=== PATIENT | female | born 1990 | race Caucasian/White ===

== ENCOUNTER 2016-11-26 15:12 | Inpatient (IN) | payer OTHER ==
[2016-11-26 18:25] VITALS: BMI 44.6
--- NOTE | 2016-11-26 20:04 | HP ---
Admission [facility] Chief Complaint: SEEKING REHAB SERVICES FOR ALCOHOL DEPENDENCE Allergies/Adverse Reactions: Allergies Allergy/AdvReac Type Severity Reaction Status Date / Time Fish Containing Products Allergy Intermediate Vomiting Verified 11/26/16 19:15 pork derived (porcine) Allergy Intermediate Vomiting Verified 11/26/16 19:15 History of Present Illness: 26 Y.O. WOMAN WITH AN EXTENSIVE HISTORY OF ALCOHOL DEPENDENCE IS SEEKING REHAB. SHE REPORTS SHE COMPLETED DETOX AT [facility] ON 08/2016 AND COMPLETED REHAB AT [facility] ON 09/2016. SHE WAS AT [facility] FROM 11/23-11/26 DUE TO ACUTE ALCOHOL INTOXICATION. SHE WAS REFERRED HERE FOR REHAB SERVICES. Exam Limitations: No Limitations - Ebola screening Have you traveled outside of the country in the last 21 days: No Have you had contact with anyone from an Ebola affected area: No Have you been sick,other than usual withdrawal symptoms: No - Review of Systems Constitutional: Chills, Night Sweats, Changes in sleep EENT: reports: No Symptoms Reported Respiratory: reports: No Symptoms reported, Wheezing Cardiac: reports: Palpitations GI: reports: Constipated, Nausea : reports: No Symptoms Reported Musculoskeletal: reports: Back Pain Integumentary: reports: Other (SCARTS ON B/L UE; PT. CUTS HERSHELF WHEN SHE IS ANXIOUS) Neuro: reports: Seizure (BENZO RELATED SEIZURE-LAST WAS IN 08/2016) Endocrine: reports: Excessive Sweating Hematology: reports: No Symptoms Reported Psychiatric: reports: Orientated x3, Anxious, Depressed, other (PTSD) Other Systems: Reviewed and Negative Patient History - Patient Medical History Hx Anemia: No Hx Asthma: Yes Hx Chronic Obstructive Pulmonary Disease (COPD): No Hx Cancer: No Hx Cardiac Disorders: No Hx Congestive Heart Failure: No Hx Hypertension: No Hx Hypercholesterolemia: No Hx Pacemaker: No HX Cerebrovascular Accident: No Hx Seizures: Yes (BENZO RELATED 08/2016) Hx Dementia: No Hx Diabetes: No Hx Gastrointestinal Disorders: Yes (DYSPEPSIA ) Hx Liver Disease: No Hx Genitourinary Disorders: No Hx Sexually Transmitted Disorders: No Hx Renal Disease (ESRD): No Hx Thyroid Disease: Yes (HYPOTHYROID ) Hx Human Immunodeficiency Virus (HIV): No Hx Hepatitis C: No Hx Depression: Yes Hx Suicide Attempt: Yes (2 YEARS AGO-CUT FEMORAL ARTERY ) Hx Bipolar Disorder: No Hx Schizophrenia: No - Patient Surgical History Past Surgical History: No - PPD History Previous Implant?: Yes Documented Results: Negative w/o proof PPD to be Administered?: Yes - Reproductive History Patient is a Female of Child Bearing Age (11 -55 yrs old): Yes Last Menstrual Period: 11/22/16 Patient : No - Smoking Cessation Smoking history: Current some day smoker Have you smoked in the past 12 months: Yes Aproximately how many cigarettes per day: 1 Initiated information on smoking cessation: Yes 'Breaking Loose' booklet given: 11/26/16 - Substance & Tx. History Hx Alcohol Use: Yes Hx Substance Use: No Substance Use Type: Alcohol Hx Substance Use Treatment: Yes (DETOX AND REHAB ) - Substances Abused Alcohol Route: Oral Frequency: 3-6 times per week Amount used: 1/2 LITER OF VODKA Age of first use: 19 Date of Last Use: 11/23/16 Family Disease History - Family Disease History Family Disease History: CA: Grandparent, Other: Sister (ETOH DEPENDENT ) Admission Physical Exam [facility] - Vital Signs Vital Signs: Vital Signs - 24 hr 11/26/16 18:21 Temperature 95.7 F L Pulse Rate 76 Respiratory 20 Rate Blood Pressure 116/80 - Physical General Appearance: Yes: Obese, Anxious HEENTM: Yes: Hearing grossly Normal, Normocephalic, Normal Voice Respiratory: Yes: Chest Non-Tender, Lungs Clear, Normal Breath Sounds, No Respiratory Distress, No Accessory Muscle Use Neck: Yes: No masses,lesions,Nodules, Trachea in good position Breast: Yes: Breast Exam Deferred Cardiology: Yes: Regular Rhythm, Regular Rate, S1, S2 Abdominal: Yes: Soft Genitourinary: Yes: Other (NO COMPLAINTS REPORTED) Back: Yes: Normal Inspection Musculoskeletal: Yes: full range of Motion, Gait Steady Extremities: Yes: Normal Inspection, Normal Range of Motion, Non-Tender Neurological: Yes: 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 HAS SCARS FROM CUTTING HERSELF ON B/L UE) Lymphatic: Yes: Within Normal Limits - Diagnostic (1) Alcohol dependence with uncomplicated withdrawal Current Visit: Yes Status: Chronic (2) Asthma Current Visit: Yes Status: Chronic (3) Hypothyroid Current Visit: Yes Status: Chronic (4) Nicotine dependence Current Visit: Yes Status: Chronic (5) Self mutilating behavior Current Visit: Yes Status: Chronic Cleared for Admission [facility] - Detox or Rehab [facility] Level of Care: Observation Bed Claeared for Rehab Admission: Yes [facility] Breath Alcohol Content Breath Alcohol Content: 0 Urine Pregancy Test - Result Urine Test Results: Negative- NO Line Present Urine Drug Screen - Results Drug Screen Negative: No Urine Drug Screen Results: BZO-Benzodiazepines
[2016-11-26] MEDS ORDERED: diphenhydrAMINE HCL 50 MG CAPSULE PO PRN (20:14)
[2016-11-26] MEDS ORDERED: MAG HYDROX/AL HYDROX/SIMETH 30 ML UNIT-DOSE CUP PO PRN (20:14)
[2016-11-26] MEDS ORDERED: NICOTINE POLACRILEX 2 MG GUM BC PRN (20:14)
[2016-11-26] MEDS ORDERED: LOPERAMIDE HCL 2 MG CAPSULE PO PRN (20:14)
[2016-11-26] MEDS ORDERED: MAGNESIUM HYDROX 2400MG/30ML ORAL SUSPENSION 30 ML CUP PO PRN (20:14)
[2016-11-26] MEDS ORDERED: ACETAMINOPHEN 325 MG TABLET (FP) PO PRN (20:14)
[2016-11-26] MEDS ORDERED: MAGNESIUM CITRATE 300 ML BOTTLE PO PRN (20:14)
[2016-11-26] MEDS ORDERED: guaiFENesin/D-METHORPHAN HB 10 ML UNIT-DOSE CUPS PO PRN (20:14)
[2016-11-26] MEDS ORDERED: P-EPHED 60MG/TRIPROLIDI 2.5MG TABLET PO PRN (20:14)
[2016-11-26] MEDS ORDERED: MENTHOL/PHENOL 1 EACH UD MM PRN (20:14)
[2016-11-26] MEDS ORDERED: ALBUTEROL SO4 6.7 GM HFA INHALER IH PRN (20:20)
[2016-11-26 23:04] LABS: URINE APPEARANCE CLEAR; URINE BILIRUBIN NEGATIVE (NEGATIVE); URINE BLOOD NEGATIVE (NEGATIVE); URINE COLOR STRAW; URINE GLUCOSE (UA) NEGATIVE (NEGATIVE); URINE KETONE NEGATIVE (NEGATIVE); URINE NITRITE NEGATIVE (NEGATIVE); URINE PROTEIN NEGATIVE (NEGATIVE); URINE UROBILINOGEN NEGATIVE E.U./dl (0.2-1.0)
[2016-11-26 23:10] LABS: URINE LEUK ESTERASE TRACE (NEGATIVE)
[2016-11-26 23:13] LABS: URINE BACTERIA RARE /hpf (NONE SEEN); URINE RBC <1 /hpf (0-3); URINE WBC 2 /hpf (3-5)
[2016-11-26] MEDS: traZODone HCL 100 MG TABLET (FP) PO SCH (23:38)
[2016-11-26] MEDS: THIAMINE HCL 100 MG TABLET (FP) PO SCH (23:38)
[2016-11-26] MEDS: TOPIRAMATE 100 MG TABLET PO SCH (23:38)
[2016-11-26] MEDS: RANITIDINE HCL 150 MG TABLET (FP) PO SCH (23:39)
[2016-11-26] MEDS: LITHIUM CARBONATE 300 MG CAPSULE (FP) PO SCH (23:39)
[2016-11-27] MEDS ORDERED: TUBERCULIN PPD 5 TU/0.1ML VIAL ID ONE (05:47)
[2016-11-27] MEDS: LEVOTHYROXINE NA 100 MCG TABLET (FP) PO SCH (06:58)
[2016-11-27 10:09] LABS: MCH 30.9 pg (25.7-33.7); MCHC 32.8 g/dl (32.0-36.0); MEAN CELL VOLUME 94.3 fl (80-96); MEAN PLT VOLUME 10.1 fl (7.5-11.1); PLATELET COUNT 263 K/MM3 (134-434); RDW 16.2 % (11.6-15.6); WHITE BLOOD COUNT 6.9 K/mm3 (4.0-10.0)
[2016-11-27] MEDS: PRENATAL VITAMINS W/ FOLIC ACID TABLET (FP) PO SCH (10:26)
[2016-11-27] MEDS: TOPIRAMATE 100 MG TABLET PO SCH ×2 (10:26→21:19)
[2016-11-27] MEDS: FLUoxetine HCL 20 MG CAPSULE (FP) PO SCH (10:26)
[2016-11-27] MEDS: PANTOPRAZOLE 40 MG TABLET (FP) PO SCH (10:26)
[2016-11-27] MEDS: RANITIDINE HCL 150 MG TABLET (FP) PO SCH ×2 (10:27→21:19)
[2016-11-27 10:36] LABS: ALBUMIN 3.9 g/dl (3.4-5.0); ANION GAP 9 (8-16); CALCIUM 9.7 mg/dL (8.5-10.1); CO2 25 mmol/L (21-32); GLUCOSE,RANDOM 76 mg/dL (74-106)
[2016-11-27 11:00] LABS: ALK PHOS 61 U/L (45-117); BILIRUBIN,TOTAL 0.4 mg/dL (0.2-1.0); CREATININE 0.7 mg/dL (0.55-1.02); SGOT/AST 17 U/L (15-37); SGPT/ALT 17 U/L (12-78); TOT PROT 7.3 g/dl (6.4-8.2)
--- NOTE | 2016-11-27 11:44 | EKG ---
Test Reason : Blood Pressure : / mmHG Vent. Rate : 060 BPM Atrial Rate : 060 BPM P-R Int : 180 ms QRS Dur : 086 ms QT Int : 424 ms P-R-T Axes : 020 013 034 degrees QTc Int : 424 ms NORMAL SINUS RHYTHM NORMAL ECG NO PREVIOUS ECGS AVAILABLE Confirmed by RAFA BEAR MD ([id number]) on 11/27/2016 11:44:08 AM Referred By: Josy Gillespie Confirmed By:RAFA BEAR MD
[2016-11-27] MEDS: LITHIUM CARBONATE 300 MG CAPSULE (FP) PO SCH (21:19)
[2016-11-27] MEDS: THIAMINE HCL 100 MG TABLET (FP) PO SCH (21:19)
[2016-11-27] MEDS: traZODone HCL 100 MG TABLET (FP) PO SCH (21:19)
[2016-11-27] MEDS ORDERED: traZODone HCL 100 MG TABLET (FP) PO SCH (22:00)
[2016-11-28] MEDS: LEVOTHYROXINE NA 100 MCG TABLET (FP) PO SCH (06:21)
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
[2016-11-28] MEDS: RANITIDINE HCL 150 MG TABLET (FP) PO SCH ×2 (10:49→21:39)
[2016-11-28] MEDS: PRENATAL VITAMINS W/ FOLIC ACID TABLET (FP) PO SCH (10:49)
[2016-11-28] MEDS: FLUoxetine HCL 20 MG CAPSULE (FP) PO SCH (10:49)
[2016-11-28] MEDS: TOPIRAMATE 100 MG TABLET PO SCH ×2 (10:49→21:42)
[2016-11-28] MEDS: PANTOPRAZOLE 40 MG TABLET (FP) PO SCH (10:49)
[2016-11-28] MEDS: LITHIUM CARBONATE 300 MG CAPSULE (FP) PO SCH ×2 (11:10→21:39)
[2016-11-28] MEDS: AMITRIPTYLINE HCL 25 MG TABLET (FP) PO SCH ×2 (13:02→21:39)
[2016-11-28] MEDS: THIAMINE HCL 100 MG TABLET (FP) PO SCH (21:39)
[2016-11-28] MEDS: traZODone HCL 100 MG TABLET (FP) PO SCH (21:39)
[2016-11-28] MEDS: SUVOREXANT 10 MG TABLET PO PRN (21:42)
[2016-11-29] MEDS: AMITRIPTYLINE HCL 25 MG TABLET (FP) PO SCH ×3 (06:26→21:43)
[2016-11-29] MEDS: LEVOTHYROXINE NA 100 MCG TABLET (FP) PO SCH (06:26)
[2016-11-29] MEDS: LITHIUM CARBONATE 300 MG CAPSULE (FP) PO SCH ×2 (10:49→21:43)
[2016-11-29] MEDS: RANITIDINE HCL 150 MG TABLET (FP) PO SCH ×2 (10:49→22:40)
[2016-11-29] MEDS: TOPIRAMATE 100 MG TABLET PO SCH ×2 (10:49→21:42)
[2016-11-29] MEDS: PANTOPRAZOLE 40 MG TABLET (FP) PO SCH (10:49)
[2016-11-29] MEDS: FLUoxetine HCL 20 MG CAPSULE (FP) PO SCH (10:49)
[2016-11-29] MEDS: PRENATAL VITAMINS W/ FOLIC ACID TABLET (FP) PO SCH (10:49)
[2016-11-29] MEDS: SENNOSIDES 8.6MG TABLET (FP) PO SCH (15:56)
[2016-11-29] MEDS: traZODone HCL 100 MG TABLET (FP) PO SCH (21:42)
[2016-11-29] MEDS: THIAMINE HCL 100 MG TABLET (FP) PO SCH (21:43)
[2016-11-29] MEDS: SUVOREXANT 10 MG TABLET PO PRN (21:44)
[2016-11-30] MEDS: LEVOTHYROXINE NA 100 MCG TABLET (FP) PO SCH (06:24)
[2016-11-30] MEDS: AMITRIPTYLINE HCL 25 MG TABLET (FP) PO SCH ×3 (06:24→21:56)
[2016-11-30] MEDS: PANTOPRAZOLE 40 MG TABLET (FP) PO SCH (10:45)
[2016-11-30] MEDS: LITHIUM CARBONATE 300 MG CAPSULE (FP) PO SCH ×2 (10:45→21:56)
[2016-11-30] MEDS: SENNOSIDES 8.6MG TABLET (FP) PO SCH (10:45)
[2016-11-30] MEDS: TOPIRAMATE 100 MG TABLET PO SCH ×2 (10:45→21:56)
[2016-11-30] MEDS: FLUoxetine HCL 20 MG CAPSULE (FP) PO SCH (10:45)
[2016-11-30] MEDS: RANITIDINE HCL 150 MG TABLET (FP) PO SCH ×2 (10:46→21:56)
[2016-11-30] MEDS: PRENATAL VITAMINS W/ FOLIC ACID TABLET (FP) PO SCH (10:46)
--- NOTE | 2016-11-30 16:40 | PN ---
Psychiatric Progress Note Vital Signs: Vital Signs Period Temp Pulse Resp BP Sys/Veras Pulse Ox Last 24 Hr 97.7 F 93 16-18 93/58 Date of Session: 11/30/16 Chief Complaint:: progress update HPI: Patient addressed Alcohol dependence comorbid with Bordeline Personality disorder,Major depressive disorder. ROS: Significant for BA,Hypothyroid. Current Medications: Active Medications Generic Name Dose Route Start Last Admin Trade Name Freq PRN Reason Stop Dose Admin Acetaminophen 650 mg 11/26/16 20:14 Tylenol - PO Q4H PRN PAIN Al Hydroxide/Mg Hydroxide 30 ml 11/26/16 20:14 Mylanta Oral Suspension - PO Q6H PRN DYSPEPSIA Albuterol Sulfate 2 puff 11/26/16 20:20 Ventolin Hfa Inhaler - IH Q4H PRN SHORT OF BREATH/WHEEZING Amitriptyline HCl 25 mg 11/28/16 14:00 11/30/16 13:07 Elavil - PO 25 mg TID JAZZMINE Administration Diphenhydramine HCl 50 mg 11/26/16 20:14 Benadryl - PO HSMR1 PRN INSOMNIA Eucalyptus/Menthol/Phenol/Sorbitol 1 each 11/26/16 20:14 Cepastat Lozenge - MM Q4H PRN SORE THROAT Fluoxetine HCl 40 mg 11/27/16 10:00 11/30/16 10:45 Prozac - PO 40 mg DAILY JAZZMINE Administration Guaifenesin 10 ml 11/26/16 20:14 Robitussin Dm - PO Q6H PRN COUGH Hydroxyzine Pamoate 50 mg 11/26/16 20:14 Vistaril - PO Q4H PRN AGITATION Ibuprofen 400 mg 11/26/16 20:14 Motrin - PO Q6H PRN SEVERE PAIN Levothyroxine Sodium 100 mcg 11/27/16 07:00 11/30/16 06:24 Synthroid - PO 100 mcg DAILY@0700 JAZZMINE Administration [place] Carbonate 600 mg 11/26/16 22:00 11/29/16 21:43 Eskalith - PO 600 mg HS JAZZMINE Administration [place] Carbonate 300 mg 11/28/16 10:30 11/30/16 10:45 Eskalith - PO 300 mg DAILY JAZZMINE Administration Loperamide HCl 4 mg 11/26/16 20:14 Imodium - PO Q6H PRN DIARRHEA Magnesium Citrate 300 ml 11/26/16 20:14 Citroma - PO Q48H PRN CONSTIPATION Magnesium Hydroxide 30 ml 11/26/16 20:14 Milk Of Magnesia - PO DAILY PRN CONSTIPATION Nicotine Polacrilex 2 mg 11/26/16 20:14 Nicorette Gum - BC Q2H PRN NICOTINE REPLACEMENT RX Pantoprazole Sodium 40 mg 11/27/16 10:00 11/30/16 10:45 Protonix - PO 40 mg DAILY JAZZMINE Administration Multivit/Folic Acid/Iron 1 tab 11/27/16 10:00 11/30/16 10:46 Vitamins (Sjr) - PO 1 tab DAILY JAZZMINE Administration Pseudoephedrine/Triprolidine 1 combo 11/26/16 20:14 Actifed - PO TID PRN NASAL CONGESTION Ranitidine HCl 150 mg 11/26/16 22:00 11/30/16 10:46 Zantac - PO 150 mg BID JAZZMINE Administration Senna 1 tab 11/29/16 15:30 11/30/16 10:45 Senna - PO 1 tab DAILY JAZZMINE Administration Thiamine HCl 100 mg 11/26/16 22:00 11/29/16 21:43 Vitamin B1 - PO 100 mg HS JAZZMINE Administration Topiramate 100 mg 11/26/16 23:00 11/30/16 10:45 Topamax - PO 100 mg BID JAZZMINE Administration Trazodone HCl 100 mg 11/26/16 22:00 11/29/16 21:42 Desyrel - PO 100 mg HS JAZZMINE Administration Current Side Effect: No Lab tests ordered: No Lab tests reviewed: Yes Provider note:: chart was revuewed,patient was seen today.Treatment plan including medication management and psychotherapy has been discussed with patient .she has made some progress during her staying in the hospital.patient reports that she is able to utilze her coping skills during unpredicictable or stressful situations.psychoeducations has been provided as weel as supportive therapy. patient will continue current medications as per plan. Total face to face time:: 30 Mental Status Exam - Mental Status Exam Alert and Oriented to: Time, Place, Person Cognitive Function: Grossly Intact Patient Appearance: Unkempt Mood: Sad, Expansive Affect: Mood Congruent, Labile Patient Behavior: Cooperative Speech Pattern: Clear Voice Loudness: Normal Thought Process: Goal Oriented Thought Disorder: Not Present Hallucinations: Denies Suicidal Ideation: Denies Homicidal Ideation: Denies Insight/Judgement: Fair Sleep: Fair Appetite: Fair Muscle strength/Tone: Normal Gait/Station: Normal Psychiatric Treatment Plan - Problem List (1) Alcohol dependence with uncomplicated withdrawal Current Visit: Yes (2) Asthma Current Visit: Yes (3) Hypothyroid Current Visit: Yes (4) Nicotine dependence Current Visit: Yes (5) Borderline personality disorder Current Visit: Yes (6) MDD (major depressive disorder) Current Visit: Yes
[2016-11-30] MEDS: SUVOREXANT 10 MG TABLET PO PRN (21:55)
[2016-11-30] MEDS: THIAMINE HCL 100 MG TABLET (FP) PO SCH (21:56)
[2016-11-30] MEDS: traZODone HCL 100 MG TABLET (FP) PO SCH (21:56)
[2016-12-01] MEDS ORDERED: PT OWN MED DRAWER 7, Y5N ONE (05:45)
[2016-12-01] MEDS: LEVOTHYROXINE NA 100 MCG TABLET (FP) PO SCH (07:04)
[2016-12-01] MEDS: AMITRIPTYLINE HCL 25 MG TABLET (FP) PO SCH ×3 (07:04→21:32)
[2016-12-01] MEDS: LITHIUM CARBONATE 300 MG CAPSULE (FP) PO SCH ×2 (10:11→21:32)
[2016-12-01] MEDS: PANTOPRAZOLE 40 MG TABLET (FP) PO SCH (10:11)
[2016-12-01] MEDS: SENNOSIDES 8.6MG TABLET (FP) PO SCH (10:11)
[2016-12-01] MEDS: TOPIRAMATE 100 MG TABLET PO SCH ×2 (10:11→21:34)
[2016-12-01] MEDS: PRENATAL VITAMINS W/ FOLIC ACID TABLET (FP) PO SCH (10:11)
[2016-12-01] MEDS: RANITIDINE HCL 150 MG TABLET (FP) PO SCH ×2 (10:11→21:32)
[2016-12-01] MEDS: FLUoxetine HCL 20 MG CAPSULE (FP) PO SCH (10:11)
[2016-12-01] MEDS: THIAMINE HCL 100 MG TABLET (FP) PO SCH (21:32)
[2016-12-01] MEDS: traZODone HCL 100 MG TABLET (FP) PO SCH (21:32)
[2016-12-01] MEDS: SUVOREXANT 10 MG TABLET PO PRN (21:35)
[2016-12-02] MEDS: AMITRIPTYLINE HCL 25 MG TABLET (FP) PO SCH ×3 (06:32→21:43)
[2016-12-02] MEDS: LEVOTHYROXINE NA 100 MCG TABLET (FP) PO SCH (06:32)
[2016-12-02] MEDS: RANITIDINE HCL 150 MG TABLET (FP) PO SCH ×2 (10:15→21:43)
[2016-12-02] MEDS: LITHIUM CARBONATE 300 MG CAPSULE (FP) PO SCH ×2 (10:15→21:45)
[2016-12-02] MEDS: PRENATAL VITAMINS W/ FOLIC ACID TABLET (FP) PO SCH (10:15)
[2016-12-02] MEDS: SENNOSIDES 8.6MG TABLET (FP) PO SCH (10:16)
[2016-12-02] MEDS: FLUoxetine HCL 20 MG CAPSULE (FP) PO SCH (10:16)
[2016-12-02] MEDS: TOPIRAMATE 100 MG TABLET PO SCH ×2 (10:16→21:43)
[2016-12-02] MEDS: PANTOPRAZOLE 40 MG TABLET (FP) PO SCH (10:17)
[2016-12-02] MEDS: THIAMINE HCL 100 MG TABLET (FP) PO SCH (21:43)
[2016-12-02] MEDS: traZODone HCL 100 MG TABLET (FP) PO SCH (21:43)
[2016-12-02] MEDS: SUVOREXANT 10 MG TABLET PO PRN (21:45)
[2016-12-03] MEDS: LEVOTHYROXINE NA 100 MCG TABLET (FP) PO SCH (06:28)
[2016-12-03] MEDS: AMITRIPTYLINE HCL 25 MG TABLET (FP) PO SCH ×3 (06:28→21:43)
[2016-12-03] MEDS: IBUPROFEN 400 MG TABLET (FP) PO PRN (06:28)
[2016-12-03] MEDS: PANTOPRAZOLE 40 MG TABLET (FP) PO SCH (10:51)
[2016-12-03] MEDS: PRENATAL VITAMINS W/ FOLIC ACID TABLET (FP) PO SCH (10:52)
[2016-12-03] MEDS: TOPIRAMATE 100 MG TABLET PO SCH ×2 (10:52→21:43)
[2016-12-03] MEDS: SENNOSIDES 8.6MG TABLET (FP) PO SCH (10:52)
[2016-12-03] MEDS: RANITIDINE HCL 150 MG TABLET (FP) PO SCH ×2 (10:52→21:43)
[2016-12-03] MEDS: LITHIUM CARBONATE 300 MG CAPSULE (FP) PO SCH ×2 (10:52→21:43)
[2016-12-03] MEDS: FLUoxetine HCL 20 MG CAPSULE (FP) PO SCH (10:52)
[2016-12-03] MEDS: traZODone HCL 100 MG TABLET (FP) PO SCH (21:43)
[2016-12-03] MEDS: THIAMINE HCL 100 MG TABLET (FP) PO SCH (21:43)
[2016-12-03] MEDS: SUVOREXANT 10 MG TABLET PO PRN (21:44)
[2016-12-04] MEDS: LEVOTHYROXINE NA 100 MCG TABLET (FP) PO SCH (06:24)
[2016-12-04] MEDS: AMITRIPTYLINE HCL 25 MG TABLET (FP) PO SCH ×3 (06:24→21:40)
[2016-12-04] MEDS: PRENATAL VITAMINS W/ FOLIC ACID TABLET (FP) PO SCH (10:45)
[2016-12-04] MEDS: FLUoxetine HCL 20 MG CAPSULE (FP) PO SCH (10:46)
[2016-12-04] MEDS: RANITIDINE HCL 150 MG TABLET (FP) PO SCH ×2 (10:47→21:40)
[2016-12-04] MEDS: TOPIRAMATE 100 MG TABLET PO SCH ×2 (10:47→21:40)
[2016-12-04] MEDS: LITHIUM CARBONATE 300 MG CAPSULE (FP) PO SCH ×2 (10:47→21:39)
[2016-12-04] MEDS: PANTOPRAZOLE 40 MG TABLET (FP) PO SCH (10:47)
[2016-12-04] MEDS: SENNOSIDES 8.6MG TABLET (FP) PO SCH (10:47)
[2016-12-04] MEDS: THIAMINE HCL 100 MG TABLET (FP) PO SCH (21:39)
[2016-12-04] MEDS: traZODone HCL 100 MG TABLET (FP) PO SCH (21:40)
[2016-12-04] MEDS: IBUPROFEN 400 MG TABLET (FP) PO PRN (21:40)
[2016-12-05] MEDS: LEVOTHYROXINE NA 100 MCG TABLET (FP) PO SCH (06:14)
[2016-12-05] MEDS: AMITRIPTYLINE HCL 25 MG TABLET (FP) PO SCH ×3 (06:14→21:37)
[2016-12-05] MEDS: PRENATAL VITAMINS W/ FOLIC ACID TABLET (FP) PO SCH (10:28)
[2016-12-05] MEDS: FLUoxetine HCL 20 MG CAPSULE (FP) PO SCH (10:28)
[2016-12-05] MEDS: LITHIUM CARBONATE 300 MG CAPSULE (FP) PO SCH ×2 (10:28→21:37)
[2016-12-05] MEDS: SENNOSIDES 8.6MG TABLET (FP) PO SCH (10:28)
[2016-12-05] MEDS: RANITIDINE HCL 150 MG TABLET (FP) PO SCH ×2 (10:29→21:38)
[2016-12-05] MEDS: PANTOPRAZOLE 40 MG TABLET (FP) PO SCH (10:29)
[2016-12-05] MEDS: TOPIRAMATE 100 MG TABLET PO SCH ×2 (10:29→21:38)
--- NOTE | 2016-12-05 13:55 | PN ---
Psychiatric Progress Note Vital Signs: Vital Signs Period Temp Pulse Resp BP Sys/Veras Pulse Ox Last 24 Hr 97.7 F 79 18-18 111/79 Date of Session: 12/05/16 Chief Complaint:: Leon having nightmares,Iused to take Prazosin in the past for my PTSD. HPI: Patient addressed Alcohol dependence comorbid with MDD,Bordeline personality disorder. ROS: Significant for Hypothyroid. Current Medications: Active Medications Generic Name Dose Route Start Last Admin Trade Name Freq PRN Reason Stop Dose Admin Acetaminophen 650 mg 11/26/16 20:14 Tylenol - PO Q4H PRN PAIN Al Hydroxide/Mg Hydroxide 30 ml 11/26/16 20:14 Mylanta Oral Suspension - PO Q6H PRN DYSPEPSIA Albuterol Sulfate 2 puff 11/26/16 20:20 Ventolin Hfa Inhaler - IH Q4H PRN SHORT OF BREATH/WHEEZING Amitriptyline HCl 25 mg 11/28/16 14:00 12/05/16 13:00 Elavil - PO 25 mg TID JAZZMINE Administration Diphenhydramine HCl 50 mg 11/26/16 20:14 Benadryl - PO HSMR1 PRN INSOMNIA Eucalyptus/Menthol/Phenol/Sorbitol 1 each 11/26/16 20:14 Cepastat Lozenge - MM Q4H PRN SORE THROAT Fluoxetine HCl 40 mg 11/27/16 10:00 12/05/16 10:28 Prozac - PO 40 mg DAILY JAZZMINE Administration Guaifenesin 10 ml 11/26/16 20:14 Robitussin Dm - PO Q6H PRN COUGH Hydroxyzine Pamoate 50 mg 11/26/16 20:14 Vistaril - PO Q4H PRN AGITATION Ibuprofen 400 mg 11/26/16 20:14 12/04/16 21:40 Motrin - PO 400 mg Q6H PRN Administration SEVERE PAIN Levothyroxine Sodium 100 mcg 11/27/16 07:00 12/05/16 06:14 Synthroid - PO 100 mcg DAILY@0700 JAZZMINE Administration [place] Carbonate 600 mg 11/26/16 22:00 12/04/16 21:39 Eskalith - PO 600 mg HS JAZZMINE Administration [place] Carbonate 300 mg 11/28/16 10:30 12/05/16 10:28 Eskalith - PO 300 mg DAILY JAZZMINE Administration Loperamide HCl 4 mg 11/26/16 20:14 Imodium - PO Q6H PRN DIARRHEA Magnesium Citrate 300 ml 11/26/16 20:14 Citroma - PO Q48H PRN CONSTIPATION Magnesium Hydroxide 30 ml 11/26/16 20:14 Milk Of Magnesia - PO DAILY PRN CONSTIPATION Nicotine Polacrilex 2 mg 11/26/16 20:14 Nicorette Gum - BC Q2H PRN NICOTINE REPLACEMENT RX Pantoprazole Sodium 40 mg 11/27/16 10:00 12/05/16 10:29 Protonix - PO 40 mg DAILY JAZZMINE Administration Multivit/Folic Acid/Iron 1 tab 11/27/16 10:00 12/05/16 10:28 Vitamins (Sjr) - PO 1 tab DAILY JAZZMINE Administration Pseudoephedrine/Triprolidine 1 combo 11/26/16 20:14 Actifed - PO TID PRN NASAL CONGESTION Ranitidine HCl 150 mg 11/26/16 22:00 12/05/16 10:29 Zantac - PO 150 mg BID JAZZMINE Administration Senna 1 tab 11/29/16 15:30 12/05/16 10:28 Senna - PO 1 tab DAILY JAZZMINE Administration Thiamine HCl 100 mg 11/26/16 22:00 12/04/16 21:39 Vitamin B1 - PO 100 mg HS JAZZMINE Administration Topiramate 100 mg 11/26/16 23:00 12/05/16 10:29 Topamax - PO 100 mg BID JAZZMINE Administration Trazodone HCl 100 mg 11/26/16 22:00 12/04/16 21:40 Desyrel - PO 100 mg HS JAZZMINE Administration Current Side Effect: No Lab tests ordered: No Lab tests reviewed: Yes Provider note:: patient was evaluated today.Psychotropic medications has been discussed with the patients.according to her,insomnia is stilla problems.She has been suffering from sleeping difficulties for years and one of the medications prescribed by her PCP was really helphul.She recalled that it was Prazosin.properties of Prazosin has been discussed .Patient is willing to start 2 mg of prazosin po hs to night. supportive therapy provided.. Total face to face time:: 30 Mental Status Exam - Mental Status Exam Alert and Oriented to: Time, Place, Person Cognitive Function: Grossly Intact Patient Appearance: Unkempt Mood: Sad, Anxious Affect: Mood Congruent, Labile Patient Behavior: Cooperative Speech Pattern: Clear Voice Loudness: Normal Thought Process: Goal Oriented Thought Disorder: Not Present Hallucinations: Denies Suicidal Ideation: Denies Homicidal Ideation: Denies Insight/Judgement: Fair Sleep: Difficulty falling asleep Appetite: Good Muscle strength/Tone: Normal Gait/Station: Normal Psychiatric Treatment Plan - Problem List (1) Alcohol dependence with uncomplicated withdrawal Current Visit: Yes (2) Asthma Current Visit: Yes (3) Hypothyroid Current Visit: Yes (4) Nicotine dependence Current Visit: Yes (5) Borderline personality disorder Current Visit: Yes (6) MDD (major depressive disorder) Current Visit: Yes
[2016-12-05] MEDS: THIAMINE HCL 100 MG TABLET (FP) PO SCH (21:37)
[2016-12-05] MEDS: traZODone HCL 100 MG TABLET (FP) PO SCH (21:37)
[2016-12-05] MEDS: PRAZOSIN HCL 1 MG CAPSULE PO SCH (21:40)
[2016-12-06] MEDS: AMITRIPTYLINE HCL 25 MG TABLET (FP) PO SCH ×3 (06:13→21:35)
[2016-12-06] MEDS: LEVOTHYROXINE NA 100 MCG TABLET (FP) PO SCH (06:13)
[2016-12-06] MEDS: LITHIUM CARBONATE 300 MG CAPSULE (FP) PO SCH ×2 (09:09→21:34)
[2016-12-06] MEDS: PANTOPRAZOLE 40 MG TABLET (FP) PO SCH (09:09)
[2016-12-06] MEDS: TOPIRAMATE 100 MG TABLET PO SCH ×2 (09:09→21:36)
[2016-12-06] MEDS: PRENATAL VITAMINS W/ FOLIC ACID TABLET (FP) PO SCH (09:09)
[2016-12-06] MEDS: RANITIDINE HCL 150 MG TABLET (FP) PO SCH ×2 (09:09→21:35)
[2016-12-06] MEDS: FLUoxetine HCL 20 MG CAPSULE (FP) PO SCH (09:10)
[2016-12-06] MEDS: SENNOSIDES 8.6MG TABLET (FP) PO SCH (09:10)
[2016-12-06] MEDS ORDERED: PT OWN MED DRAWER 7, Y5N ONE (10:55)
[2016-12-06] MEDS: IBUPROFEN 400 MG TABLET (FP) PO PRN (17:02)
[2016-12-06] MEDS: PRAZOSIN HCL 1 MG CAPSULE PO SCH (21:34)
[2016-12-06] MEDS: SUVOREXANT 10 MG TABLET PO PRN (21:36)
[2016-12-06] MEDS: THIAMINE HCL 100 MG TABLET (FP) PO SCH (21:36)
[2016-12-06] MEDS: traZODone HCL 100 MG TABLET (FP) PO SCH (21:36)
[2016-12-07] MEDS: LEVOTHYROXINE NA 100 MCG TABLET (FP) PO SCH (06:35)
[2016-12-07] MEDS: AMITRIPTYLINE HCL 25 MG TABLET (FP) PO SCH ×3 (06:35→21:41)
[2016-12-07] MEDS: RANITIDINE HCL 150 MG TABLET (FP) PO SCH ×2 (10:29→21:41)
[2016-12-07] MEDS: TOPIRAMATE 100 MG TABLET PO SCH ×2 (10:29→21:41)
[2016-12-07] MEDS: FLUoxetine HCL 20 MG CAPSULE (FP) PO SCH (10:29)
[2016-12-07] MEDS: SENNOSIDES 8.6MG TABLET (FP) PO SCH (10:29)
[2016-12-07] MEDS: LITHIUM CARBONATE 300 MG CAPSULE (FP) PO SCH ×2 (10:29→21:41)
[2016-12-07] MEDS: PANTOPRAZOLE 40 MG TABLET (FP) PO SCH (10:29)
[2016-12-07] MEDS: PRENATAL VITAMINS W/ FOLIC ACID TABLET (FP) PO SCH (10:29)
[2016-12-07] MEDS ORDERED: SODIUM PHOSPHATE/NA BIPHOS 133 ML ENEMA PR ONE (14:45)
[2016-12-07] MEDS: traZODone HCL 100 MG TABLET (FP) PO SCH (21:41)
[2016-12-07] MEDS: PRAZOSIN HCL 1 MG CAPSULE PO SCH (21:41)
[2016-12-07] MEDS: THIAMINE HCL 100 MG TABLET (FP) PO SCH (21:41)
[2016-12-07] MEDS ORDERED: PT OWN MED DRAWER 7, Y5N ONE (22:29)
[2016-12-07] MEDS ORDERED: SUVOREXANT 10 MG TABLET PO ONE (22:30)
[2016-12-08] MEDS: LEVOTHYROXINE NA 100 MCG TABLET (FP) PO SCH (06:24)
[2016-12-08] MEDS: AMITRIPTYLINE HCL 25 MG TABLET (FP) PO SCH ×3 (06:24→21:54)
[2016-12-08] MEDS: LITHIUM CARBONATE 300 MG CAPSULE (FP) PO SCH ×2 (10:25→21:56)
[2016-12-08] MEDS: PRENATAL VITAMINS W/ FOLIC ACID TABLET (FP) PO SCH (10:26)
[2016-12-08] MEDS: TOPIRAMATE 100 MG TABLET PO SCH ×2 (10:26→21:55)
[2016-12-08] MEDS: SENNOSIDES 8.6MG TABLET (FP) PO SCH (10:26)
[2016-12-08] MEDS: PANTOPRAZOLE 40 MG TABLET (FP) PO SCH (10:26)
[2016-12-08] MEDS: RANITIDINE HCL 150 MG TABLET (FP) PO SCH ×2 (10:26→21:55)
[2016-12-08] MEDS: FLUoxetine HCL 20 MG CAPSULE (FP) PO SCH (10:26)
[2016-12-08] MEDS: SUVOREXANT 10 MG TABLET PO PRN (21:54)
[2016-12-08] MEDS: THIAMINE HCL 100 MG TABLET (FP) PO SCH (21:55)
[2016-12-08] MEDS: PRAZOSIN HCL 1 MG CAPSULE PO SCH (21:55)
[2016-12-08] MEDS: traZODone HCL 100 MG TABLET (FP) PO SCH (21:56)
[2016-12-09] MEDS: LEVOTHYROXINE NA 100 MCG TABLET (FP) PO SCH (06:15)
[2016-12-09] MEDS: AMITRIPTYLINE HCL 25 MG TABLET (FP) PO SCH ×3 (06:15→21:37)
[2016-12-09] MEDS: PRENATAL VITAMINS W/ FOLIC ACID TABLET (FP) PO SCH (10:06)
[2016-12-09] MEDS: LITHIUM CARBONATE 300 MG CAPSULE (FP) PO SCH ×2 (10:06→21:37)
[2016-12-09] MEDS: TOPIRAMATE 100 MG TABLET PO SCH ×2 (10:07→21:37)
[2016-12-09] MEDS: FLUoxetine HCL 20 MG CAPSULE (FP) PO SCH (10:07)
[2016-12-09] MEDS: PANTOPRAZOLE 40 MG TABLET (FP) PO SCH (10:07)
[2016-12-09] MEDS: SENNOSIDES 8.6MG TABLET (FP) PO SCH (10:07)
[2016-12-09] MEDS: RANITIDINE HCL 150 MG TABLET (FP) PO SCH ×2 (10:07→21:37)
[2016-12-09] MEDS: SUVOREXANT 10 MG TABLET PO PRN (21:36)
[2016-12-09] MEDS: PRAZOSIN HCL 1 MG CAPSULE PO SCH (21:36)
[2016-12-09] MEDS: THIAMINE HCL 100 MG TABLET (FP) PO SCH (21:37)
[2016-12-09] MEDS: traZODone HCL 100 MG TABLET (FP) PO SCH (21:37)
[2016-12-10] MEDS: LEVOTHYROXINE NA 100 MCG TABLET (FP) PO SCH (06:39)
[2016-12-10] MEDS: AMITRIPTYLINE HCL 25 MG TABLET (FP) PO SCH ×3 (06:39→21:42)
[2016-12-10] MEDS: FLUoxetine HCL 20 MG CAPSULE (FP) PO SCH (11:05)
[2016-12-10] MEDS: PRENATAL VITAMINS W/ FOLIC ACID TABLET (FP) PO SCH (11:05)
[2016-12-10] MEDS: SENNOSIDES 8.6MG TABLET (FP) PO SCH (11:06)
[2016-12-10] MEDS: PANTOPRAZOLE 40 MG TABLET (FP) PO SCH (11:06)
[2016-12-10] MEDS: TOPIRAMATE 100 MG TABLET PO SCH ×2 (11:06→21:42)
[2016-12-10] MEDS: LITHIUM CARBONATE 300 MG CAPSULE (FP) PO SCH ×2 (11:06→21:42)
[2016-12-10] MEDS: RANITIDINE HCL 150 MG TABLET (FP) PO SCH ×2 (11:07→21:42)
[2016-12-10] MEDS ORDERED: PT OWN MED DRAWER 7, Y5N ONE (21:41)
[2016-12-10] MEDS: HYDROCORTISONE 2.5% TOPICAL CREAM 30 GM TUBE TP SCH (21:41)
[2016-12-10] MEDS: traZODone HCL 100 MG TABLET (FP) PO SCH (21:42)
[2016-12-10] MEDS: PRAZOSIN HCL 1 MG CAPSULE PO SCH (21:42)
[2016-12-10] MEDS: THIAMINE HCL 100 MG TABLET (FP) PO SCH (21:44)
[2016-12-10] MEDS: SUVOREXANT 10 MG TABLET PO PRN (21:44)
[2016-12-11] MEDS: AMITRIPTYLINE HCL 25 MG TABLET (FP) PO SCH ×3 (06:33→21:29)
[2016-12-11] MEDS: LEVOTHYROXINE NA 100 MCG TABLET (FP) PO SCH (06:34)
[2016-12-11] MEDS: PANTOPRAZOLE 40 MG TABLET (FP) PO SCH (10:35)
[2016-12-11] MEDS: PRENATAL VITAMINS W/ FOLIC ACID TABLET (FP) PO SCH (10:35)
[2016-12-11] MEDS: HYDROCORTISONE 2.5% TOPICAL CREAM 30 GM TUBE TP SCH ×2 (10:36→21:33)
[2016-12-11] MEDS: TOPIRAMATE 100 MG TABLET PO SCH ×2 (10:36→21:29)
[2016-12-11] MEDS: RANITIDINE HCL 150 MG TABLET (FP) PO SCH ×2 (10:36→21:29)
[2016-12-11] MEDS: LITHIUM CARBONATE 300 MG CAPSULE (FP) PO SCH ×2 (10:36→21:29)
[2016-12-11] MEDS: FLUoxetine HCL 20 MG CAPSULE (FP) PO SCH (10:36)
[2016-12-11] MEDS: SENNOSIDES 8.6MG TABLET (FP) PO SCH (10:36)
[2016-12-11] MEDS ORDERED: BISACODYL 5 MG TABLET.DR (FP) PO ONE (11:40)
[2016-12-11] MEDS: HYDROCORTISONE 1% TOPICAL CREAM 30 GM TUBE TP SCH ×3 (13:12→21:33)
[2016-12-11] MEDS: hydrOXYzine PAMOATE 50 MG CAPSULE (FP) PO PRN (18:53)
[2016-12-11] MEDS: traZODone HCL 100 MG TABLET (FP) PO SCH (21:29)
[2016-12-11] MEDS: THIAMINE HCL 100 MG TABLET (FP) PO SCH (21:29)
[2016-12-11] MEDS: PRAZOSIN HCL 1 MG CAPSULE PO SCH (21:29)
[2016-12-11] MEDS: DOCUSATE SODIUM 100 MG CAPSULE (FP) PO SCH (21:31)
[2016-12-11] MEDS ORDERED: PT OWN MED DRAWER 7, Y5N ONE (21:33)
[2016-12-11] MEDS: SUVOREXANT 10 MG TABLET PO PRN (21:33)
[2016-12-12] MEDS: AMITRIPTYLINE HCL 25 MG TABLET (FP) PO SCH ×3 (06:25→21:33)
[2016-12-12] MEDS: LEVOTHYROXINE NA 100 MCG TABLET (FP) PO SCH (06:25)
[2016-12-12] MEDS: HYDROCORTISONE 2.5% TOPICAL CREAM 30 GM TUBE TP SCH ×2 (10:03→21:35)
[2016-12-12] MEDS: HYDROCORTISONE 1% TOPICAL CREAM 30 GM TUBE TP SCH ×4 (10:03→21:35)
[2016-12-12] MEDS: PRENATAL VITAMINS W/ FOLIC ACID TABLET (FP) PO SCH (10:04)
[2016-12-12] MEDS: SENNOSIDES 8.6MG TABLET (FP) PO SCH (10:04)
[2016-12-12] MEDS: TOPIRAMATE 100 MG TABLET PO SCH ×2 (10:04→21:36)
[2016-12-12] MEDS: PANTOPRAZOLE 40 MG TABLET (FP) PO SCH (10:04)
[2016-12-12] MEDS: RANITIDINE HCL 150 MG TABLET (FP) PO SCH ×2 (10:04→21:33)
[2016-12-12] MEDS: FLUoxetine HCL 20 MG CAPSULE (FP) PO SCH (10:04)
[2016-12-12] MEDS: LITHIUM CARBONATE 300 MG CAPSULE (FP) PO SCH ×2 (10:04→21:33)
[2016-12-12] MEDS ORDERED: PT OWN MED DRAWER 7, Y5N ONE ×3 (10:30→14:07)
[2016-12-12] MEDS: traZODone HCL 100 MG TABLET (FP) PO SCH (21:33)
[2016-12-12] MEDS: DOCUSATE SODIUM 100 MG CAPSULE (FP) PO SCH (21:33)
[2016-12-12] MEDS: PRAZOSIN HCL 1 MG CAPSULE PO SCH (21:36)
[2016-12-12] MEDS: THIAMINE HCL 100 MG TABLET (FP) PO SCH (21:36)
[2016-12-13] MEDS: AMITRIPTYLINE HCL 25 MG TABLET (FP) PO SCH ×3 (06:16→21:31)
[2016-12-13] MEDS: LEVOTHYROXINE NA 100 MCG TABLET (FP) PO SCH (06:16)
[2016-12-13] MEDS: RANITIDINE HCL 150 MG TABLET (FP) PO SCH ×2 (10:11→21:31)
[2016-12-13] MEDS: PANTOPRAZOLE 40 MG TABLET (FP) PO SCH (10:11)
[2016-12-13] MEDS: PRENATAL VITAMINS W/ FOLIC ACID TABLET (FP) PO SCH (10:11)
[2016-12-13] MEDS: LITHIUM CARBONATE 300 MG CAPSULE (FP) PO SCH ×2 (10:11→21:31)
[2016-12-13] MEDS: FLUoxetine HCL 20 MG CAPSULE (FP) PO SCH (10:11)
[2016-12-13] MEDS: SENNOSIDES 8.6MG TABLET (FP) PO SCH (10:11)
[2016-12-13] MEDS: TOPIRAMATE 100 MG TABLET PO SCH ×2 (10:12→21:31)
[2016-12-13] MEDS: HYDROCORTISONE 2.5% TOPICAL CREAM 30 GM TUBE TP SCH ×2 (10:12→21:33)
[2016-12-13] MEDS: HYDROCORTISONE 1% TOPICAL CREAM 30 GM TUBE TP SCH ×4 (10:12→21:33)
[2016-12-13] MEDS ORDERED: PT OWN MED DRAWER 7, Y5N ONE ×2 (10:29→15:27)
[2016-12-13] MEDS: PRAZOSIN HCL 1 MG CAPSULE PO SCH (21:31)
[2016-12-13] MEDS: DOCUSATE SODIUM 100 MG CAPSULE (FP) PO SCH (21:31)
[2016-12-13] MEDS: THIAMINE HCL 100 MG TABLET (FP) PO SCH (21:31)
[2016-12-13] MEDS: traZODone HCL 100 MG TABLET (FP) PO SCH (21:31)
[2016-12-14] MEDS: LEVOTHYROXINE NA 100 MCG TABLET (FP) PO SCH (06:10)
[2016-12-14] MEDS: AMITRIPTYLINE HCL 25 MG TABLET (FP) PO SCH ×3 (06:10→21:46)
[2016-12-14] MEDS: HYDROCORTISONE 2.5% TOPICAL CREAM 30 GM TUBE TP SCH ×2 (10:17→21:45)
[2016-12-14] MEDS: SENNOSIDES 8.6MG TABLET (FP) PO SCH (10:17)
[2016-12-14] MEDS: HYDROCORTISONE 1% TOPICAL CREAM 30 GM TUBE TP SCH ×4 (10:17→22:02)
[2016-12-14] MEDS: LITHIUM CARBONATE 300 MG CAPSULE (FP) PO SCH ×2 (10:17→21:46)
[2016-12-14] MEDS: FLUoxetine HCL 20 MG CAPSULE (FP) PO SCH (10:17)
[2016-12-14] MEDS: PRENATAL VITAMINS W/ FOLIC ACID TABLET (FP) PO SCH (10:17)
[2016-12-14] MEDS: TOPIRAMATE 100 MG TABLET PO SCH ×2 (10:18→21:46)
[2016-12-14] MEDS: PANTOPRAZOLE 40 MG TABLET (FP) PO SCH (10:18)
[2016-12-14] MEDS: RANITIDINE HCL 150 MG TABLET (FP) PO SCH ×2 (10:18→21:46)
[2016-12-14] MEDS ORDERED: PT OWN MED DRAWER 7, Y5N ONE ×3 (10:37→19:55)
[2016-12-14] MEDS ORDERED: SUVOREXANT 10 MG TABLET PO PRN (15:43)
[2016-12-14] MEDS: IBUPROFEN 400 MG TABLET (FP) PO PRN (19:41)
[2016-12-14] MEDS: DOCUSATE SODIUM 100 MG CAPSULE (FP) PO SCH (21:45)
[2016-12-14] MEDS: PRAZOSIN HCL 1 MG CAPSULE PO SCH (21:46)
[2016-12-14] MEDS: traZODone HCL 100 MG TABLET (FP) PO SCH (21:46)
[2016-12-14] MEDS: THIAMINE HCL 100 MG TABLET (FP) PO SCH (21:46)
[2016-12-15] MEDS: LEVOTHYROXINE NA 100 MCG TABLET (FP) PO SCH (06:54)
[2016-12-15] MEDS: AMITRIPTYLINE HCL 25 MG TABLET (FP) PO SCH ×3 (06:54→21:32)
[2016-12-15] MEDS ORDERED: PT OWN MED DRAWER 7, Y5N ONE (08:42)
[2016-12-15] MEDS: IBUPROFEN 400 MG TABLET (FP) PO PRN ×3 (08:51→21:34)
[2016-12-15] MEDS: HYDROCORTISONE 1% TOPICAL CREAM 30 GM TUBE TP SCH ×4 (09:34→21:32)
[2016-12-15] MEDS: HYDROCORTISONE 2.5% TOPICAL CREAM 30 GM TUBE TP SCH ×2 (09:34→21:34)
[2016-12-15] MEDS: PRENATAL VITAMINS W/ FOLIC ACID TABLET (FP) PO SCH (09:35)
[2016-12-15] MEDS: RANITIDINE HCL 150 MG TABLET (FP) PO SCH ×2 (09:35→21:32)
[2016-12-15] MEDS: SENNOSIDES 8.6MG TABLET (FP) PO SCH (09:35)
[2016-12-15] MEDS: TOPIRAMATE 100 MG TABLET PO SCH ×2 (09:35→21:32)
[2016-12-15] MEDS: FLUoxetine HCL 20 MG CAPSULE (FP) PO SCH (09:36)
[2016-12-15] MEDS: LITHIUM CARBONATE 300 MG CAPSULE (FP) PO SCH ×2 (09:36→21:32)
[2016-12-15] MEDS: PANTOPRAZOLE 40 MG TABLET (FP) PO SCH (09:36)
[2016-12-15] MEDS: traZODone HCL 100 MG TABLET (FP) PO SCH (21:32)
[2016-12-15] MEDS: PRAZOSIN HCL 1 MG CAPSULE PO SCH (21:32)
[2016-12-15] MEDS: DOCUSATE SODIUM 100 MG CAPSULE (FP) PO SCH (21:32)
[2016-12-15] MEDS: THIAMINE HCL 100 MG TABLET (FP) PO SCH (21:35)
[2016-12-16] MEDS: LEVOTHYROXINE NA 100 MCG TABLET (FP) PO SCH (06:46)
[2016-12-16] MEDS: AMITRIPTYLINE HCL 25 MG TABLET (FP) PO SCH ×3 (06:46→21:30)
[2016-12-16] MEDS: IBUPROFEN 400 MG TABLET (FP) PO PRN (09:01)
[2016-12-16] MEDS: PRENATAL VITAMINS W/ FOLIC ACID TABLET (FP) PO SCH (10:05)
[2016-12-16] MEDS: SENNOSIDES 8.6MG TABLET (FP) PO SCH (10:05)
[2016-12-16] MEDS: PANTOPRAZOLE 40 MG TABLET (FP) PO SCH (10:05)
[2016-12-16] MEDS: RANITIDINE HCL 150 MG TABLET (FP) PO SCH ×2 (10:06→21:28)
[2016-12-16] MEDS: TOPIRAMATE 100 MG TABLET PO SCH ×2 (10:06→21:28)
[2016-12-16] MEDS: LITHIUM CARBONATE 300 MG CAPSULE (FP) PO SCH ×2 (10:07→21:29)
[2016-12-16] MEDS: FLUoxetine HCL 20 MG CAPSULE (FP) PO SCH (10:07)
[2016-12-16] MEDS: HYDROCORTISONE 2.5% TOPICAL CREAM 30 GM TUBE TP SCH ×2 (10:08→21:31)
[2016-12-16] MEDS: HYDROCORTISONE 1% TOPICAL CREAM 30 GM TUBE TP SCH ×4 (10:08→21:30)
[2016-12-16] MEDS: hydrOXYzine PAMOATE 50 MG CAPSULE (FP) PO PRN (13:32)
[2016-12-16] MEDS: traZODone HCL 100 MG TABLET (FP) PO SCH (21:28)
[2016-12-16] MEDS: DOCUSATE SODIUM 100 MG CAPSULE (FP) PO SCH (21:28)
[2016-12-16] MEDS: PRAZOSIN HCL 1 MG CAPSULE PO SCH (21:29)
[2016-12-16] MEDS: THIAMINE HCL 100 MG TABLET (FP) PO SCH (21:31)
[2016-12-17] MEDS: LEVOTHYROXINE NA 100 MCG TABLET (FP) PO SCH (06:04)
[2016-12-17] MEDS: AMITRIPTYLINE HCL 25 MG TABLET (FP) PO SCH (06:44)
[2016-12-17 07:22] VITALS: BP 110/71; PULSE 94; TEMP 97.8
[2016-12-17] MEDS ORDERED: PT OWN MED DRAWER 7, Y5N ONE (08:26)
--- NOTE | 2016-12-17 09:43 | PN ---
Psychiatric Progress Note Vital Signs: Vital Signs Period Temp Pulse Resp BP Sys/Veras Pulse Ox Last 24 Hr 97.8 F 94 18-18 110/71 Date of Session: 12/17/16 Chief Complaint:: Discharge visit HPI: patient addressed Alcochol dpendence comorbid with MDD,Bordeline personality disorder. Current Medications: Active Medications Generic Name Dose Route Start Last Admin Trade Name Freq PRN Reason Stop Dose Admin Acetaminophen 650 mg 11/26/16 20:14 Tylenol - PO Q4H PRN PAIN Al Hydroxide/Mg Hydroxide 30 ml 11/26/16 20:14 Mylanta Oral Suspension - PO Q6H PRN DYSPEPSIA Albuterol Sulfate 2 puff 11/26/16 20:20 Ventolin Hfa Inhaler - IH Q4H PRN SHORT OF BREATH/WHEEZING Amitriptyline HCl 25 mg 11/28/16 14:00 12/17/16 06:44 Elavil - PO 25 mg TID JAZZMINE Administration Diphenhydramine HCl 50 mg 11/26/16 20:14 Benadryl - PO HSMR1 PRN INSOMNIA Docusate Sodium 300 mg 12/11/16 22:00 12/16/16 21:28 Colace - PO 300 mg HS JAZZMINE Administration Eucalyptus/Menthol/Phenol/Sorbitol 1 each 11/26/16 20:14 Cepastat Lozenge - MM Q4H PRN SORE THROAT Fluoxetine HCl 40 mg 11/27/16 10:00 12/16/16 10:07 Prozac - PO 40 mg DAILY JAZZMINE Administration Guaifenesin 10 ml 11/26/16 20:14 Robitussin Dm - PO Q6H PRN COUGH Hydrocortisone 1 applic 12/10/16 22:00 12/16/16 21:31 Anusol 2.5% Hc Cream - TP Not Given BID JAZZMINE Hydrocortisone 1 applic 12/11/16 14:00 12/16/16 21:30 Hytone 1% Cream - TP Not Given QID JAZZMINE Hydroxyzine Pamoate 50 mg 11/26/16 20:14 12/16/16 13:32 Vistaril - PO 50 mg Q4H PRN Administration AGITATION Ibuprofen 400 mg 11/26/16 20:14 12/16/16 09:01 Motrin - PO 400 mg Q6H PRN Administration SEVERE PAIN Levothyroxine Sodium 100 mcg 11/27/16 07:00 12/17/16 06:04 Synthroid - PO 100 mcg DAILY@0700 JAZZMINE Administration [place] Carbonate 600 mg 11/26/16 22:00 12/16/16 21:29 Eskalith - PO 600 mg HS JAZZMINE Administration [place] Carbonate 300 mg 11/28/16 10:30 12/16/16 10:07 Eskalith - PO 300 mg DAILY JAZZMINE Administration Loperamide HCl 4 mg 11/26/16 20:14 Imodium - PO Q6H PRN DIARRHEA Magnesium Citrate 300 ml 11/26/16 20:14 Citroma - PO Q48H PRN CONSTIPATION Magnesium Hydroxide 30 ml 11/26/16 20:14 12/09/16 15:09 Milk Of Magnesia - PO 30 ml DAILY PRN Administration CONSTIPATION Nicotine Polacrilex 2 mg 11/26/16 20:14 Nicorette Gum - BC Q2H PRN NICOTINE REPLACEMENT RX Pantoprazole Sodium 40 mg 11/27/16 10:00 12/16/16 10:05 Protonix - PO 40 mg DAILY JAZZMINE Administration Prazosin HCl 2 mg 12/05/16 22:00 12/16/16 21:29 Minipress - PO 2 mg HS JAZZMINE Administration Multivit/Folic Acid/Iron 1 tab 11/27/16 10:00 12/16/16 10:05 Vitamins (Sjr) - PO 1 tab DAILY JAZZMINE Administration Pseudoephedrine/Triprolidine 1 combo 11/26/16 20:14 Actifed - PO TID PRN NASAL CONGESTION Ranitidine HCl 150 mg 11/26/16 22:00 12/16/16 21:28 Zantac - PO 150 mg BID JAZZMINE Administration Senna 1 tab 11/29/16 15:30 12/16/16 10:05 Senna - PO 1 tab DAILY JAZZMINE Administration Thiamine HCl 100 mg 11/26/16 22:00 12/16/16 21:31 Vitamin B1 - PO 100 mg HS JAZZMINE Administration Topiramate 100 mg 11/26/16 23:00 12/16/16 21:28 Topamax - PO 100 mg BID JAZZMINE Administration Trazodone HCl 100 mg 11/26/16 22:00 12/16/16 21:28 Desyrel - PO 100 mg HS JAZZMINE Administration Current Side Effect: No Lab tests ordered: No Lab tests reviewed: Yes Provider note:: PAtient completed this program today she has met her treatment goals and will continue to address her issues on outpatient basis at [facility] .Patient continues to find that current medicatiosn: Prozac 40 mg po daily,Topamax 100 mg po bid,Trazodone 100 mg po hs, Amitriptillin 25 mg po tid,Prazocin 2 mg po hs,Li 300 mg po am and 600 mg po hs help to cope with mood instability,insomnia,depdession.Scripts for 30 days provided. Therpay provided focusing on relapse prevention. Supportive therpy provided. PAtient is stable for discharge today. Total face to face time:: 30 Mental Status Exam - Mental Status Exam Alert and Oriented to: Time, Place, Person Cognitive Function: Grossly Intact Patient Appearance: Well Groomed Mood: Anxious, Hopeful Affect: Mood Congruent Patient Behavior: Cooperative Speech Pattern: Clear Voice Loudness: Normal Thought Process: Goal Oriented Thought Disorder: Not Present Hallucinations: Denies Suicidal Ideation: Denies Homicidal Ideation: Denies Insight/Judgement: Fair Sleep: Fair Appetite: Good Muscle strength/Tone: Normal Gait/Station: Normal Psychiatric Treatment Plan - Problem List (1) Alcohol dependence with uncomplicated withdrawal Current Visit: Yes (2) Asthma Current Visit: Yes (3) Hypothyroid Current Visit: Yes (4) Nicotine dependence Current Visit: Yes (5) Borderline personality disorder Current Visit: Yes (6) MDD (major depressive disorder) Current Visit: Yes
[2016-12-17] MEDS: TOPIRAMATE 100 MG TABLET PO SCH (10:00)
[2016-12-17] MEDS: PRENATAL VITAMINS W/ FOLIC ACID TABLET (FP) PO SCH (10:00)
[2016-12-17] MEDS: RANITIDINE HCL 150 MG TABLET (FP) PO SCH (10:00)
[2016-12-17] MEDS: LITHIUM CARBONATE 300 MG CAPSULE (FP) PO SCH (10:00)
[2016-12-17] MEDS: PANTOPRAZOLE 40 MG TABLET (FP) PO SCH (10:00)
[2016-12-17] MEDS: FLUoxetine HCL 20 MG CAPSULE (FP) PO SCH (10:01)
[2016-12-17] MEDS: SENNOSIDES 8.6MG TABLET (FP) PO SCH (10:01)
[2016-12-17] MEDS: HYDROCORTISONE 2.5% TOPICAL CREAM 30 GM TUBE TP SCH (10:02)
[2016-12-17] MEDS: HYDROCORTISONE 1% TOPICAL CREAM 30 GM TUBE TP SCH (10:02)
== END 2016-12-17 10:48 | disposition home or self-care (01) | DRG 895 ==
LOC: YASAS 15:12 → Y3E 20:36
PROVIDERS: ADMIT Psychiatry & Neurology Psychiatry; ATTEND Psychiatry & Neurology Psychiatry
PROC: HZ42ZZZ Group Counseling for Substance Abuse Treatment, Cognitive-Behavioral (ICD-10-PCS; principal; 2016-11-26)
DX: F10.20 Alcohol dependence, uncomplicated (principal); F33.9 Major depressive disorder, recurrent, unspecified; F17.210 Nicotine dependence, cigarettes, uncomplicated; F60.3 Borderline personality disorder; J45.909 Unspecified asthma, uncomplicated; E03.9 Hypothyroidism, unspecified; E66.9 Obesity, unspecified; Z68.35 Body mass index [BMI] 35.0-35.9, adult; Z91.013 Allergy to seafood; Z91.010 Allergy to peanuts
CPT/HCPCS: 36415; 80053; 80178; 81003; 81015; 85027; 86593; 86803; 93005; 93010